=== PATIENT | male | born 1955 | race Caucasian/White ===

== ENCOUNTER 2018-06-16 13:28 | Emergency (ER) | payer OTHER ==
[~2018-06-16] VITALS: Ht 182.9 cm; Wt 83.9 kg
[2018-06-16 13:58] LABS: BASOPHILS ABSOLUTE AUTO 0.06 K/mm3 (0.00-0.23); BASOPHILS PERCENT AUTO 1 % (0-2); EOSINOPHILS PERCENT AUTO 1 % (0-6); Hematocrit 47.3 % (37.0-53.0); Hemoglobin 15.5 g/dL (13.5-17.5); IMMATURE GRAN ABSOLUTE AUTO 0.02 K/mm3 (0.00-0.10); IMMATURE GRAN PERCENT AUTO 0 % (0-1); LYMPHOCYTES PERCENT AUTO 32 % (21-46); MONOCYTES ABSOLUTE AUTO 0.81 K/mm3 (0.16-1.47); MONOCYTES PERCENT AUTO 10 % (4-13); Mean Corpuscular HGB 29.1 pg (26.0-34.0); Mean Corpuscular HGB Conc 32.8 g/dL (31.5-36.5); Mean Corpuscular Volume 89 fL (80-100); Mean Platelet Volume 10.1 fL (9.1-12.4); NEUTROPHILS ABSOLUTE AUTO 4.58 K/mm3 (1.96-9.15); NEUTROPHILS PERCENT AUTO 56 % (41-73); Platelet Count 299 K/mm3 (150-400); RDW Coefficient Variation 13.8 % (11.7-14.2); Red Blood Cell Count 5.33 M/mm3 (4.30-5.90); White Blood Cell Count 8.17 K/mm3 (4.00-11.30)
[2018-06-16 14:09] LABS: Alanine Aminotransfer (ALT/SGP 175 U/L (12-78); Albumin, Blood 3.6 g/dL (3.4-5.0); Albumin/Globulin Ratio 0.9 (0.8-1.8); Alk Phos 128 U/L (50-136); Anion Gap 9 mmol/L (6-16); Aspartate Aminotrans (AST/SGOT 97 U/L (12-37); Bilirubin, Total 0.3 mg/dL (0.1-1.0); Blood Urea Nitrogen 17 mg/dL (8-24); Bun/Creatinine Ratio 21.7 (12.0-20.0); CO2, Blood 23 mmol/L (21-32); Calcium, Blood 8.9 mg/dL (8.5-10.1); Chloride, Blood 111 mmol/L (98-108); Creatinine, Blood 0.78 mg/dL (0.60-1.20); Globulin, Blood 4.1 g/dL (2.2-4.0); Glomerular Filtration Rate >60 (60-); Glucose, Blood 104 mg/dL (70-99); Potassium, Blood 3.8 mmol/L (3.5-5.5); Sodium, Blood 143 mmol/L (136-145); Total Protein, Blood 7.7 g/dL (6.4-8.2)
[2018-06-16 14:56] LABS: International Normalized Ratio 1.07; Prothrombin Time Results 11.3 Sec (9.7-11.5)
[2018-06-16 15:31] LABS: Source, Urine Clean Catch
[2018-06-16 15:51] LABS: Appearance, Urine Clear (Clear); Bilirubin, Urine Neg (Neg); Blood, Urine Neg (Neg); Color, Urine Yellow (P-Yellow); Glucose Qualitative, Urine Neg (Neg); Ketones, Urine Neg (Neg); Leukocyte Esterase, Urine Neg (Neg); Nitrite, Urine Neg (Neg); Protein, Urine 1+ (Neg); Specific Gravity, Urine 1.015 (1.003-1.022); Urobilinogen, Urine NORM (Normal); pH, Urine 6.5 (5.0-8.0)
[2018-06-17] MEDS ORDERED: ATOR40TA PO (02:58)
[2018-06-17] MEDS ORDERED: CEFP200 PO (02:59)
[2018-06-17] MEDS ORDERED: TAMS.4ER PO (02:59)
[2018-06-17] MEDS ORDERED: WARF5 PO (02:59)
== END 2018-06-16 15:40 | disposition home or self-care (01) ==
LOC: ER 13:28
PROVIDERS: Emergency Medicine
DX: I63.9 Cerebral infarction, unspecified (principal); R79.1 Abnormal coagulation profile
CPT/HCPCS: 80053; 85025; 85610; 99283

== ENCOUNTER 2018-06-17 02:32 | Emergency (ER) | payer OTHER ==
[~2018-06-17] VITALS: Ht 182.9 cm; Wt 83.9 kg
[2018-06-17] MEDS ORDERED: ATOR40TA PO (02:58)
[2018-06-17] MEDS ORDERED: WARF5 PO (02:59)
[2018-06-17] MEDS ORDERED: TAMS.4ER PO (02:59)
[2018-06-17] MEDS ORDERED: CEFP200 PO (02:59)
== END 2018-06-17 04:28 | disposition home or self-care (01) ==
LOC: ER 02:32
DX: S20.212A Contusion of left front wall of thorax, initial encounter (principal); W01.198A Fall on same level from slipping, tripping and stumbling with subsequent striking against other object, initial encounter; Z87.891 Personal history of nicotine dependence; Z86.73 Personal history of transient ischemic attack (TIA), and cerebral infarction without residual deficits
CPT/HCPCS: 71046; 99283-25

== ENCOUNTER 2018-07-10 11:34 | Inpatient (IN) | payer OTHER ==
[~2018-07-10] VITALS: Ht 182.9 cm; Wt 81.1 kg
[~2018-07-10 11:34] MED LIST: ATOR40TA PO; CEFP200 PO; TAMS.4ER PO; WARF5 PO
[2018-07-10 13:32] LABS: BASOPHILS ABSOLUTE AUTO 0.02 K/mm3 (0.00-0.23); BASOPHILS PERCENT AUTO 0 % (0-2); EOSINOPHILS ABSOLUTE AUTO 0.01 K/mm3 (0.00-0.68); EOSINOPHILS PERCENT AUTO 0 % (0-6); Hematocrit 48.4 % (37.0-53.0); Hemoglobin 15.8 g/dL (13.5-17.5); IMMATURE GRAN ABSOLUTE AUTO 0.01 K/mm3 (0.00-0.10); IMMATURE GRAN PERCENT AUTO 0 % (0-1); LYMPHOCYTES ABSOLUTE AUTO 2.73 K/mm3 (0.84-5.20); LYMPHOCYTES PERCENT AUTO 45 % (21-46); MONOCYTES ABSOLUTE AUTO 0.52 K/mm3 (0.16-1.47); MONOCYTES PERCENT AUTO 9 % (4-13); Mean Corpuscular HGB 28.8 pg (26.0-34.0); Mean Corpuscular HGB Conc 32.6 g/dL (31.5-36.5); Mean Corpuscular Volume 88 fL (80-100); Mean Platelet Volume 10.3 fL (9.1-12.4); NEUTROPHILS ABSOLUTE AUTO 2.81 K/mm3 (1.96-9.15); NEUTROPHILS PERCENT AUTO 46 % (41-73); Platelet Count 290 K/mm3 (150-400); RDW Coefficient Variation 14.3 % (11.7-14.2); Red Blood Cell Count 5.49 M/mm3 (4.30-5.90)
[2018-07-10 13:42] LABS: Alanine Aminotransfer (ALT/SGP 143 U/L (12-78); Alk Phos 162 U/L (50-136); Anion Gap 10 mmol/L (6-16); Aspartate Aminotrans (AST/SGOT 72 U/L (12-37); Bilirubin, Total 0.6 mg/dL (0.1-1.0); Blood Urea Nitrogen 13 mg/dL (8-24); Bun/Creatinine Ratio 17.1 (12.0-20.0); CO2, Blood 22 mmol/L (21-32); Calcium, Blood 9.1 mg/dL (8.5-10.1); Chloride, Blood 109 mmol/L (98-108); Creatinine, Blood 0.76 mg/dL (0.60-1.20); Glomerular Filtration Rate >60 (60-); Glucose, Blood 138 mg/dL (70-99); Potassium, Blood 3.3 mmol/L (3.5-5.5); Sodium, Blood 141 mmol/L (136-145)
[2018-07-10 14:29] LABS: International Normalized Ratio 1.08; Prothrombin Time Results 11.4 Sec (9.7-11.5)
[2018-07-10 15:32] LABS: Source, Urine Clean Catch
[2018-07-10 15:41] LABS: Bilirubin, Urine Neg (Neg); Blood, Urine Neg (Neg); Glucose Qualitative, Urine Neg (Neg); Ketones, Urine Neg (Neg); Leukocyte Esterase, Urine Neg (Neg); Nitrite, Urine Neg (Neg); Protein, Urine 2+ (Neg); Urobilinogen, Urine NORM (Normal)
[2018-07-10 15:49] LABS: Appearance, Urine Clear (Clear); Color, Urine Yellow (P-Yellow); Mucus Mod (0-Heavy)
[2018-07-10 15:50] LABS: Bacteria Few /hpf; Calcium Oxalate Crystals Mod /hpf; Red Blood Cells, Urine 0-2 /hpf (0-2); Squamous Epithelial Cells Not Seen /hpf (Few); White Blood Cells, Urine 0-2 /hpf (0-5)
[2018-07-10] MEDS ORDERED: ASPI81CH PO (16:10)
[2018-07-10 18:47] LABS: International Normalized Ratio 1.11; Prothrombin Time Results 11.7 Sec (9.7-11.5)
[2018-07-10 23:12] LABS: U Amphetamine Screen DETECTED; U Barbituate Screen Not Detected; U Benzodiazapine Screen Not Detected; U Buprenorphine Screen Not Detected; U Cannabinoids Screen Not Detected; U Cocaine Screen Not Detected; U Methadone Screen Not Detected; U Methamphetamine Screen DETECTED; U Opiates Screen Not Detected; U Oxycodone Screen Not Detected; U Phencyclidine Screen Not Detected; U Propoxyphene Screen Not Detected
--- NOTE | 2018-07-10 23:38 | NUR ---
PHYSICIAN CORRESPONDENCE PATIENT STATED THAT HE NORMALLY TAKES LIPITOR AT BEDTIME. PHYSICIAN STATED TO JUST CALL PHARMACY AND HAVE THEM SWTICH IT.
[2018-07-11 05:27] LABS: BASOPHILS ABSOLUTE AUTO 0.04 K/mm3 (0.00-0.23); BASOPHILS PERCENT AUTO 1 % (0-2); EOSINOPHILS ABSOLUTE AUTO 0.07 K/mm3 (0.00-0.68); EOSINOPHILS PERCENT AUTO 1 % (0-6); Hematocrit 44.5 % (37.0-53.0); Hemoglobin 14.6 g/dL (13.5-17.5); IMMATURE GRAN ABSOLUTE AUTO 0.03 K/mm3 (0.00-0.10); IMMATURE GRAN PERCENT AUTO 0 % (0-1); LYMPHOCYTES PERCENT AUTO 42 % (21-46); MONOCYTES ABSOLUTE AUTO 0.85 K/mm3 (0.16-1.47); MONOCYTES PERCENT AUTO 11 % (4-13); Mean Corpuscular HGB Conc 32.8 g/dL (31.5-36.5); Mean Corpuscular Volume 88 fL (80-100); Mean Platelet Volume 10.3 fL (9.1-12.4); NEUTROPHILS ABSOLUTE AUTO 3.51 K/mm3 (1.96-9.15); NEUTROPHILS PERCENT AUTO 46 % (41-73); Platelet Count 272 K/mm3 (150-400); RDW Coefficient Variation 14.2 % (11.7-14.2); RDW Standard Deviation 45.4 fL (35.1-46.3); Red Blood Cell Count 5.04 M/mm3 (4.30-5.90)
[2018-07-11 05:33] LABS: International Normalized Ratio 1.28; Prothrombin Time Results 13.3 Sec (9.7-11.5)
[2018-07-11 05:48] LABS: Anion Gap 7 mmol/L (6-16); Blood Urea Nitrogen 15 mg/dL (8-24); Bun/Creatinine Ratio 20.3 (12.0-20.0); CO2, Blood 24 mmol/L (21-32); Calcium, Blood 8.7 mg/dL (8.5-10.1); Chloride, Blood 108 mmol/L (98-108); Creatinine, Blood 0.74 mg/dL (0.60-1.20); Glomerular Filtration Rate >60 (60-); Glucose, Blood 107 mg/dL (70-99); Potassium, Blood 3.6 mmol/L (3.5-5.5); Sodium, Blood 139 mmol/L (136-145)
--- NOTE | 2018-07-11 06:18 | NUR ---
SHIFT SUMMARY RECEIVED REPORT FROM ED RN. ARRIVED TO MEDICAL UNIT VIA STRETCHER @ 2058. ORIENTED TO ROOM AND CALL SYSTEM. A/O, ABLE TO MAKE NEEDS KNOWN. ANSWERS QUESTIONS APPROPRIATELY. RE-INFORCED TEACHING FIRST OFFICER SYSTEM MULTIPLE TYPES T/O SHIFT; WILL DEMONSTRATE, BUT THEN CALLS OUT FOR HELP. TELE RUNNING NSR @ 82 PER PCU SPINNER CAP FRAME. NO C/O PAIN/DISCOMFORT. VSS/AFEBRILE. REMAINS ON RA, SATING >90%; RESPIRATIONS EQUAL WITH EVEN RISE/FALL. BED IN LOWEST POSITON. ALARM ON. CALL LIGHT AND BELONGINGS WITHIN REACH. WCTM. REPORT TO ONCOMING RN.
--- NOTE | 2018-07-11 07:58 | NUR ---
PATIENT UNABLE TO LIFT LEFT ARM ON OWN, WHEN RN LIFTS IT SLOWLY DRIFTS BACK DOWN. 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 NO MOVEMENT RT LEG.
--- NOTE | 2018-07-11 10:59 | NUR ---
echocardiogram completed
--- NOTE | 2018-07-11 16:21 | NUR ---
PATIENT ALERT, ORIENTED. COOPERATIVE. UNLABORED RESPIRATIONS. UNABLE TO USE LEFT LEG AND WHEN RN MOVES HIS LT ARM UP IN AIR IS ABLE TO HOLD IT UP FOR FEW SECONDS. NO SWALLOWING OR VOICE DEFICITS. AWARE POSSIBLE D'C TO SNF. BED IN LOW POSITION. CALL LIGHT WITHIN REACH OF RT ARM. WILL CONTINUE TO MONITOR.
--- NOTE | 2018-07-11 17:13 | NUR ---
REVIEWED P.T. FOR LEFT ARM. WILL CONTINUE TO ENCOURAGE.
--- NOTE | 2018-07-11 17:16 | NUR ---
TALKED TO ABOUT NO MEDS VIA IV AND CAN WE HAVE ORDER FOR NO IV ASSESS NEEDED PRESENT ONE WAS IN C.W. OK . ALSO D'C TELE.
--- NOTE | 2018-07-12 00:43 | NUR ---
0040 OBSERVED PT GRAB CALL LIGHT WITH WEAKENED ARM "LEFT SIDE" AND TOSS ON FLOOR.
[2018-07-12 04:57] LABS: Hematocrit 46.1 % (37.0-53.0); Hemoglobin 14.7 g/dL (13.5-17.5); Mean Corpuscular HGB 29.1 pg (26.0-34.0); Mean Corpuscular HGB Conc 31.9 g/dL (31.5-36.5); Mean Platelet Volume 10.5 fL (9.1-12.4); Platelet Count 228 K/mm3 (150-400); RDW Coefficient Variation 14.4 % (11.7-14.2); RDW Standard Deviation 47.8 fL (35.1-46.3); Red Blood Cell Count 5.06 M/mm3 (4.30-5.90); White Blood Cell Count 8.57 K/mm3 (4.00-11.30)
[2018-07-12 05:00] LABS: Mean Corpuscular Volume 91 fL (80-100)
[2018-07-12 05:12] LABS: International Normalized Ratio 1.53; Prothrombin Time Results 15.6 Sec (9.7-11.5)
--- NOTE | 2018-07-12 05:13 | NUR ---
SHIFT SUMMARY A/O, ABLE TO MAKE NEEDS KNOWN. ANSWERS QUESTIONS APPROPRIATELY. C/O PAIN/DISCOMFORT THIS AM; MEDICATED PER EMAR. NOTICED DURING BED CHANGE LAST NIGHT THAT PATIENT IS ABLE TO LIFT UP HIPS (BILATERALLY). APPEARS TO CONSCIOUSLY KEEP L LEG STRAIGHTENED. 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 STATED THIS AM "I NEED HELP", WHEN ASKED WHAT PATIENT NEEDED HELP WITH HE STATES "ESCAPING". PATIENT AWARE THAT HE IS CURRENTLY UNABLE TO WALK. DEMONSTRATES UNDERSTANDING. VSS. NO OTHER ACUTE CHANGES OVERNIGHT. BED IN LOWEST POSITION. ALARM ON. CALL LIGHT AND BELONGINGS WITHIN REACH. WCTM. REPORT TO ONCOMING RN.
--- NOTE | 2018-07-12 18:26 | NUR ---
PATIENT ALERT. COOPERATIVE. "CAREGIVER" HAS BEEN IN ROOM MOST OF AFTERNOON. DISCUSSED; LABS, &IMAGING W/PATIENT. PATIENT AWARE IF HE CONTINUES TO TAKE METH AND AMPHETAMINES HE COULD HAVE ANOTHER STROKE OR WORSE. REVIEWED EXERCISES FOR P.T. FOR LEFT ARM W/PATIENT AGAIN. UNLABORED RESPIRATIONS. BED IN LOW POSITION. CALL LIGHT NEAR RT ARM. WILL CONTINUE TO MONITOR
--- NOTE | 2018-07-13 04:49 | NUR ---
SHIFT SUMMARY A/O, ABLE TO MAKE NEEDS KNOWN. COOPERATIVE WITH CARE. ANSWERS QUESTIONS APPROPRIATELY. CAREGIVE STAYED THROUGHOUT NIGHT AND ASSISTED WITH CARES AND REPOSITIONING. C/O HEADACHE THIS AM; MEDICATED PER EMAR. APPEARED TO REST MUCH OF SHIFT. VSS/AFEBRILE. NO ACUTE CHANGES OVERNIGHT. BED IN LOWEST POSITION. ALARM ON. CALL LIGHT AND BELONGINGS WITHIN REACH. WCTM. REPORT TO ONCOMING RN.
[2018-07-13 05:31] LABS: Hematocrit 47.8 % (37.0-53.0); Mean Corpuscular HGB 28.7 pg (26.0-34.0); Mean Corpuscular HGB Conc 31.4 g/dL (31.5-36.5); Mean Corpuscular Volume 92 fL (80-100); Mean Platelet Volume 10.8 fL (9.1-12.4); Platelet Count 248 K/mm3 (150-400); RDW Coefficient Variation 14.2 % (11.7-14.2); RDW Standard Deviation 47.8 fL (35.1-46.3); Red Blood Cell Count 5.22 M/mm3 (4.30-5.90); White Blood Cell Count 9.13 K/mm3 (4.00-11.30)
[2018-07-13 05:39] LABS: International Normalized Ratio 1.75; Prothrombin Time Results 17.6 Sec (9.7-11.5)
[2018-07-13 05:53] LABS: Anion Gap 8 mmol/L (6-16); Blood Urea Nitrogen 12 mg/dL (8-24); Bun/Creatinine Ratio 16.9 (12.0-20.0); CO2, Blood 18 mmol/L (21-32); Calcium, Blood 8.5 mg/dL (8.5-10.1); Chloride, Blood 110 mmol/L (98-108); Creatinine, Blood 0.71 mg/dL (0.60-1.20); Glomerular Filtration Rate >60 (60-); Glucose, Blood 103 mg/dL (70-99); Potassium, Blood 4.2 mmol/L (3.5-5.5); Sodium, Blood 136 mmol/L (136-145)
--- NOTE | 2018-07-13 17:37 | NUR ---
SHIFT SUMMARY PT A&OX3. SLIGTH LEFT SIDED FACIAL DROOP. SEALER SANDER HAVE LEFT SIDED WEAKNESS, AND LLE MOVES A REFLEX OR PER PATIENT FAMILY IN HIS SLEEP. PT IS CALM AND COOPERATIVE WITH CARE. PT HAS FAMILY AT BEDSIDE T/O SHIFT. PT ABLE TO MAKE NEEDS KNOWN. PT RESTING IN BED THIS AM, UP IN CHIAR THIS AFTERNOON. PT DENIES SOB, PAIN AND N/V DURING SHIFT. VSS. NO OTHER ACUTE CHANGES NOTED DURING SHIFT. WILL CONTINUE TO MONITOR UNTIL REPORT GIVEN TO ONCOMING RN.
--- NOTE | 2018-07-14 04:37 | NUR ---
SHIFT SUMMARY: PT IS ALERT AND ORIENTED. PT IS CALM AND COOPERATIVE WITH CARE. PT IS A ONE PERSON ASSIST FOR TRANSFERS. PT CALLS APPROPRIATELY. CAREGIVERS IN THE ROOM OVERNIGHT. PT DENIES PAIN, NAUSEA, VOMITING, AND SOB. NO ACUTE CHANGES OR COMPLICATIONS OVERNIGHT. WILL REPORT TO DAY NURSE.
[2018-07-14 05:07] LABS: International Normalized Ratio 1.85; Prothrombin Time Results 18.5 Sec (9.7-11.5)
--- NOTE | 2018-07-14 19:33 | NUR ---
SHIFT SUMMARY PT A&OX3. PT CALM AND COOPERATIVE WITH CARE. PT UP IN CHAIR FOR MAJORITY OF SHIFT. PT 2 PERSON STAND PIVOT. EXHIBITIONS AND COLLECTIONS MANAGER WITH LEFT SIDED WEAKNESS. PT REPORTS INABLITY TO MOVE LLE, REFLEXS INTACT. PT USES URINAL AT TIMES BUT ALSO INCONTINENT AT TIMES. PT DENIES PAIN, SOB AND N/V DURING SHIFT. PT HAS GOOD APPETEITE. PLANS TO DISCHARGE TO INPATIENT REHAB OR SNF, FAMILY SANDIP MINOR, DISCHARGE PLANNING AWARE. VSS. NO OTHER ACUTE CHANGES NOTED DURING SHIFT. REPORT GIVEN TO ONCOMING RN.
--- NOTE | 2018-07-15 04:03 | NUR ---
SHIFT SUMMARY PT HAS RESTED MOST OF THE NIGHT, AND HAS DENIED NEEDS. NO ACUTE CHANGES. PT CAREGIVER AT BEDSIDE T/O THE NIGHT. MALE CAREGIVER CAME IN WITH TWO YOUNGER MEN, WHO STAYED FOR ABOUT 15 MINUTES PER PT REPORT. THEY WERE SEEN LEAVING BUT NOT SEEN ENTERING THE PT ROOM. PT STATES THEY WERE HIS FRIENDS. PT HAS BEEN CONTINENT/INCONTINENT OF URINE. WEAKNESS REMAINS TO LEFT SIDE. SPEECH CLEAR. VITALS STABLE. ASSESSMENT HAS REMAINED UNCHANGED. WILL CONTINUE TO MONITOR AND REPORT TO ONCOMING RN.
[2018-07-15 05:46] LABS: International Normalized Ratio 1.93; Prothrombin Time Results 19.3 Sec (9.7-11.5)
--- NOTE | 2018-07-15 18:57 | NUR ---
SHIFT SUMMARY OX3; MULTIPLE CVA'S WITH LEFT SIDED WEAKNESS; STAND PIVOT 2 ASSIST WITH GAIT BELT. DIFFICULTY WITH ABDUCTION ON LEFT SIDE. DENIES PAIN. MULTIPLE FAMILY MEMBERS IN ROOM THROUGHOUT DAY. CONTINENT STOOL/INCONTINENT AT TIMES. ATTENDS IN PLACE.
[2018-07-16 05:48] LABS: International Normalized Ratio 2.41; Prothrombin Time Results 23.6 Sec (9.7-11.5)
--- NOTE | 2018-07-16 08:31 | NUR ---
SHIFT SUMMARY ALERT, ABLE TO MAKE NEEDS KNOWN. COOPERATIVE WITH CARE. ANSWERS QUESTIONS APPROPRIATELY. CAREGIVER IN ROOM AND STAYED THROUGHOUT THE NIGHT. VSS/AFEBRILE. APPEARED TO SLEEP MUCH OF SHIFT. CONTROL VALVE TECHNICIAN STRENGTH BECOMING STRONGER ON THE L SIDE. NO ACUTE CHANGES OVERNIGHT. CONTINUED TO MONITOR THROUGHOUT SHIFT. REPORT GIVEN TO ONCOMING RN.
--- NOTE | 2018-07-16 19:01 | NUR ---
SHIFT SUMMARY- PT IS ALERT AND ORIENTED, LEFT SIDED WEAKNESS MAKES HIM A 2 PERSON TRANSFER WITH A JAMES WALKER AND GAIT BELT. PT HAS HIS CALL LIGHT IN REACH, NO C/O PAIN T/O THE SHIFT. PT HAS USED THE CALL LIGHT FREQUENTLY T/O THE SHIFT. PT SLEPT MOST OF THE SHIFT, HAS GOOD BED MOBILITY AND IS ABLE TO, AND FREQUENTLY, REPOSITIONS HIMSELF. FULL LINNEN CHANGE DONE THIS MORNING.
--- NOTE | 2018-07-17 05:15 | NUR ---
SHIFT SUMMARY A/O, ABLE TO MAKE NEEDS KNOWN. COOPERATIVE WITH CARE. ANSWERS QUESTIONS APPROPRIATELY. NO C/O PAIN/DISCOMFORT. CAREGIVER IN ROOM AND STAYED THROUGHOUT THE NIGHT. APPEARED TO SLEEP MUCH OF SHIFT. NO ACUTE CHANGES OVERNIGHT. VSS/AFEBRILE. WCTM. BED IN LOWEST POSITION. ALARM ON. CALL LIGHT AND BELONGINGS WITHIN REACH. REPORT TO ONCOMING RN.
[2018-07-17 06:16] LABS: International Normalized Ratio 2.21; Prothrombin Time Results 21.8 Sec (9.7-11.5)
--- NOTE | 2018-07-17 19:35 | NUR ---
SHIFT SUMMARY- PT HAS HAD NO ACUTE CHANGES T/O THE SHIFT. STILL ON RA AT THIS TIME NO SOB OR C/O PAIN. PT USES THE URINAL INDEPENDENTLY IN BED AND OCCASSIONALLY SPILLS, HE WILL CALL IF HE NEEDS HELP. PT HAS A FRIEND AT THE BEDSIDE. PT WORKED WITH PHYSICAL THERAPY AND OCCUPATIONAL THERAPY TODAY, HE IS SHOWING IMPROVEMENT IN TRANSFER ABILITY. PT HAS A LARGE APPETITE AND EATS 100% OF MEAL TRAYS. PT ALERT, ORIENTED AND HAS HIS CALL LIGHT IN REACH, CALLS APPROPRIATELY.
--- NOTE | 2018-07-18 04:28 | NUR ---
SHIFT SUMMARY: PT IS ALERT AND ORIENTED. PT IS CALM AND COOEPRATIVE WITH CARE. PT CALLS APPROPRIATELY. PT IS A ONE PERSON ASSIST FOR TRANSFERS. CAREGIVER IN THE ROOM OVERNIGHT. PT DENIES PAIN, NAUSEA, VOMITING, AND SOB. PT SLEPT MUCH OF THE NIGHT. NO ACUTE CHANGES OR COMPLICATIONS. BED IN LOW POSITION, CALL LIGHT WITHIN REACH.
[2018-07-18 05:37] LABS: International Normalized Ratio 1.87; Prothrombin Time Results 18.7 Sec (9.7-11.5)
--- NOTE | 2018-07-18 17:42 | NUR ---
SHIFT SUMMARY PATIENT IN ROOM SLEEPING. TIDIED ROOM. PROVIDED PATIENT WITH A ROOTBEER. PROVIDED DINNER. ABLE TO MAKE HIS NEEDS KNOWN. NO ACUTE CHANGES NOTED.
--- NOTE | 2018-07-18 22:18 | NUR ---
ASSUMED CARE OF PT AT 2119. PT W/O S/S DISTRESS AT THIS TIME.
[2018-07-19 05:39] LABS: International Normalized Ratio 2.05; Prothrombin Time Results 20.4 Sec (9.7-11.5)
--- NOTE | 2018-07-19 06:23 | NUR ---
SUMMARY: A/O, SPECIFIES NEEDS AND FAMILY/CAREGIVERS IN ROOM AT ALL TIMES ASSISTING W/CARE. PT SLEPT MAJORITY OF NOCTE AND DENIED PAIN/COMPLAINTS. HE HAD OCCASIONAL NIGHT INCONTINENCE W/ATTENDS CHANGED PRN AND USED URINAL AT TIMES. 1-2 ASSIST REQUIRED OOB TO BSC/CHAIR D/T L.SIDE WEAKNESS FROM MULTIPLE CVA'S. NO ACUTE CHANGES, VSS/AFEBRILE. WILL MONITOR AND REPORT TO DAY RN.
--- NOTE | 2018-07-19 16:39 | NUR ---
PT A/OX3, PLEASANT AND COOPERATIVE, THE PT IS UP WITH ASSIST, USEING THE GAIT BELT AND JAMES WALKER FOR BALANCE, LITTLE MOVEMENT IN LEFT ARM AND MODERATE MOVEMENT IN THE LEFT LEG, THE PT NEEDS ASSISTANCE WITH MEALS AND TOILETING, PT DENIED ANY PAIN SO FAR TODAY, PT IS AWAITING PLACEMENT TO AN IRU, CALL LIGHT IN REACH WILL CONTINUE TO MONITOR AND ASSES FOR CHANGES
--- NOTE | 2018-07-19 17:33 | NUR ---
at 1430 AT OR AROUND 1430 THE PT TRANSFERED TO ROOM 359 FROM ROOM 327, A/OX3, ACCOMPANIED BY FAMILY THE PT WAS OTIENTED TO THE ROOM CALL SYSTEM AND LAYOUT, PT WAS A 1 PERSON ASSIST TRANSFER FROM THE WHEELCHAIR TO THE BED
[2018-07-20 05:01] LABS: International Normalized Ratio 2.21; Prothrombin Time Results 21.8 Sec (9.7-11.5)
--- NOTE | 2018-07-20 06:31 | NUR ---
*SHIFT SUMMARY* PATIENT IS ALERT AND ORIENTED TO PLACE AND FAMILY. ON ROOM AIR. LEFT SIDE WEAK BUT ABLE TO MOVE L ARM AND L LEG. PT IS INCONTINENT AT TIMES, HE TRIES TO USE URINAL BY HIMSELF AND DIBBLES AND MISSES THE URINAL. PT SLEPT WELL THROUGHOUT THE NIGHT NO NEW CHANGES IN CONDITION. VITALS STABLE
--- NOTE | 2018-07-20 14:59 | NUR ---
SHIFT SUMMARY PATIENT HAS HAD NO ACUTE CHANGES TODAY. ABLE TO MAKE HIS NEEDS KNOWN. ATTENDS CHANGED PRN FOR INCONTINENCE.
--- NOTE | 2018-07-21 04:44 | NUR ---
SHIFT SUMMARY PT HAS SLEPT T/O SHIFT. PT HAD NO COMPLAINTS. PT CURRENTLY BREATHING EASY AND SLEEPING. CALL LIGHT IN REACH.
[2018-07-21 05:20] LABS: International Normalized Ratio 1.93; Prothrombin Time Results 19.3 Sec (9.7-11.5)
--- NOTE | 2018-07-21 19:51 | NUR ---
SHIFT SUMMARY- PT DENIES PAIN. DENIES SOB. RESP E/U ON RA. DENIES N/V. PT REQUESTED CONDOM CATH. CONDOM CATH DRAINING YELLOW COLORED URINE. NO OTHER SIGNIFICANT CHANGES THIS SHIFT.
[2018-07-22 05:05] LABS: International Normalized Ratio 2.13; Prothrombin Time Results 21.1 Sec (9.7-11.5)
--- NOTE | 2018-07-22 06:52 | NUR ---
shift summary: Left sides weakness remains about the same. Pt very weak left side. Pt unable to feed self. Pt incontinent of urine and request that we use a branden cath on him. Condom cath replaced x 2 times during the night. Pt moves around and does not make sure that the condom cath goes with him. pt alert, oriented pleasant. Pt able to take pills without problems. Pt requires one assist to get to chair.
--- NOTE | 2018-07-22 19:12 | NUR ---
SUMMARY PT IS A/O X4, PLEASANT AFFECT. DX CVA W L SIDED WEAKNESS. HE IS ABLE TO STAND W ASSIST, AMBULATE W LEG BRACE & WALKER SHORT DISTANCE HOWEVER L LEG CONTINUES UNCOORDINATED. L ARM CONTINUES WEAK W POOR COORDINATION/NEGLECT. HE IS WORKING W PT/OT. PLAN FOR HIM TO TRANSFER TO INTENSIVE IRU, [facility] MAKING ARRANGEMENTS. VSS.
[2018-07-23 04:56] LABS: International Normalized Ratio 2.42; Prothrombin Time Results 23.7 Sec (9.7-11.5)
--- NOTE | 2018-07-23 05:46 | NUR ---
SHIFT SUMMARY NO ACUTE CHANGES THIS SHIFT. PT SLEPT WELL, AOX4. VSS. DENIES PAIN, N/V OR SOB. PT HAS WEAKNESS IN LEFT SIDE. 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 GREAT TOE IS ABLE TO WIGGLE. CONDOM CATHETER IN PLACE, PATENT & DRAINING. CALL LIGHT IN REACH & I WILL CONT. TO MONITOR PT.
--- NOTE | 2018-07-23 16:09 | NUR ---
SUMMARY SALES REPRESENTATIVE PUBLICATIONSNURSE PRACTITIONER HOME ASSESSMENTS INSURANCE DENY INTENSIVE INPT REHAB TODAY, PT INFORMED. PLAN NOW FOR LOCAL SNF. HE CONTINUES TO HAVE L ARM & L LEG WEAKNESS, UNCOORDINATION. PARTICIPATED WITH PT/OT TODAY. HAS BEEN UP IN CHAIR RY Lopez. HE IS A/O X4, PLEASANT/COOPERATIVE. VSS.
--- NOTE | 2018-07-24 04:14 | NUR ---
Shift summary:Pt has been sleeping most of shift with no c/o discomfort. Pt seems to be gaining strength in left arm and leg. Pt unable to keep condom cath on so was discontinued. Pt wearing attends now.
[2018-07-24 05:11] LABS: International Normalized Ratio 2.72; Prothrombin Time Results 26.3 Sec (9.7-11.5)
--- NOTE | 2018-07-24 19:35 | NUR ---
SHIFT SUMAMRY: NO ACUTE CHANGES TO REPORT THIS SHIFT. PT A&O; CALM AND COOEPRATIVE WITH CARE. PT HX CVA; L SIDE DEFICITS. NO IV ACCESS, PER ORDER. PT UP TO BSC WITH 1-ASSIST c FWW. AWAITING PLACEMENT. REPORT GIVEN TO ONCOMING RN.
[2018-07-25 05:34] LABS: International Normalized Ratio 2.39; Prothrombin Time Results 23.4 Sec (9.7-11.5)
--- NOTE | 2018-07-25 07:55 | NUR ---
SHIFT SUMMARY PT SLEPT T/O SHIFT. PT HAD NO ISSUES NOTED. PT EAGER FOR DC.
--- NOTE | 2018-07-25 11:45 | NUR ---
[facility] ALL PT BELONGINGS WITH PATIENT.
== END 2018-07-25 11:52 | DRG 65 ==
LOC: ER 11:34 → MEDS 17:28 → ERHOLD 17:28 → MEDS 20:54
PROVIDERS: Emergency Medicine; Family Medicine; Pharmacist; Physician Assistant; ADMIT Internal Medicine
DX: I63.9 Cerebral infarction, unspecified (principal); I69.354 Hemiplegia and hemiparesis following cerebral infarction affecting left non-dominant side; Z87.891 Personal history of nicotine dependence; R47.01 Aphasia; I25.2 Old myocardial infarction; E78.5 Hyperlipidemia, unspecified; F15.10 Other stimulant abuse, uncomplicated; Z79.01 Long term (current) use of anticoagulants
CPT/HCPCS: 36415; 70450; 70551; 80048; 80053; 81001; 84443; 85025; 85027; 85610; 90686; 93005; 93010; 93306; 93880; 97110; 97112; 97116; 97162; 97167; 97530; 97535; 99285-25

== ENCOUNTER → 2018-09-19 | Outpatient (CLI) | payer OTHER ==
[~2018-09-19] MED LIST changes: +Aspirin EC81 MG PO; +METO25 PO; +MIRALAX17 GM PO; +MUCINEX D ER 61 EACH PO; +Nicoderm Cq1 EAC1 TOP; +OMEPRAZOLE20 MG PO; +XARELTO20 MG PO
[2018-09-19 09:07] LABS: International Normalized Ratio 2.17; Prothrombin Time Results 21.4 Sec (9.7-11.5)
== END | disposition home or self-care (01) ==
LOC: LAB UVN 08:44 → EDSTATUS 09:47
DX: R79.1 Abnormal coagulation profile (principal)
CPT/HCPCS: 85610

== ENCOUNTER 2019-01-03 12:24 | Inpatient (IN) | payer OTHER ==
[~2019-01-03] VITALS: Ht 182.9 cm; Wt 83.6 kg
[~2019-01-03 12:24] MED LIST changes: -METO25 PO; -MIRALAX17 GM PO; -MUCINEX D ER 61 EACH PO; -Nicoderm Cq1 EAC1 TOP; -OMEPRAZOLE20 MG PO; -XARELTO20 MG PO
[2019-01-03] MEDS ORDERED: OMEPRAZOLE20 MG PO (12:45)
[2019-01-03] MEDS ORDERED: XARELTO20 MG PO (12:46)
[2019-01-03 13:01] LABS: BASOPHILS ABSOLUTE AUTO 0.04 K/mm3 (0.00-0.23); BASOPHILS PERCENT AUTO 0 % (0-2); EOSINOPHILS ABSOLUTE AUTO 0.01 K/mm3 (0.00-0.68); EOSINOPHILS PERCENT AUTO 0 % (0-6); Hematocrit 49.5 % (37.0-53.0); Hemoglobin 16.6 g/dL (13.5-17.5); IMMATURE GRAN ABSOLUTE AUTO 0.03 K/mm3 (0.00-0.10); IMMATURE GRAN PERCENT AUTO 0 % (0-1); LYMPHOCYTES ABSOLUTE AUTO 2.29 K/mm3 (0.84-5.20); LYMPHOCYTES PERCENT AUTO 20 % (21-46); MONOCYTES ABSOLUTE AUTO 1.12 K/mm3 (0.16-1.47); MONOCYTES PERCENT AUTO 10 % (4-13); Mean Corpuscular HGB 29.2 pg (26.0-34.0); Mean Corpuscular HGB Conc 33.5 g/dL (31.5-36.5); Mean Corpuscular Volume 87 fL (80-100); NEUTROPHILS ABSOLUTE AUTO 7.99 K/mm3 (1.96-9.15); NEUTROPHILS PERCENT AUTO 70 % (41-73); Platelet Count 274 K/mm3 (150-400); RDW Coefficient Variation 13.6 % (11.7-14.2); RDW Standard Deviation 43.4 fL (35.1-46.3); Red Blood Cell Count 5.68 M/mm3 (4.30-5.90); White Blood Cell Count 11.48 K/mm3 (4.00-11.30)
[2019-01-03 13:07] LABS: Source, Urine Clean Catch
[2019-01-03 13:15] LABS: Alanine Aminotransfer (ALT/SGP 59 U/L (12-78); Alk Phos 145 U/L (50-136); Anion Gap 9 mmol/L (6-16); Aspartate Aminotrans (AST/SGOT 42 U/L (12-37); Bilirubin, Total 0.5 mg/dL (0.1-1.0); Blood Urea Nitrogen 11 mg/dL (8-24); Bun/Creatinine Ratio 16.3 (12.0-20.0); CO2, Blood 22 mmol/L (21-32); Calcium, Blood 9.4 mg/dL (8.5-10.1); Chloride, Blood 114 mmol/L (98-108); Creatinine, Blood 0.67 mg/dL (0.60-1.20); Ethanol (Alcohol), Blood, Med <3 mg/dL; Globulin, Blood 4.2 g/dL (2.2-4.0); Glomerular Filtration Rate >60 (60-); Glucose, Blood 118 mg/dL (70-99); Potassium, Blood 3.8 mmol/L (3.5-5.5); Sodium, Blood 145 mmol/L (136-145); Total Protein, Blood 8.2 g/dL (6.4-8.2)
[2019-01-03 13:15] LABS: Appearance, Urine Clear (Clear); Bilirubin, Urine Neg (Neg); Blood, Urine 1+ (Neg); Color, Urine Yellow (P-Yellow); Glucose Qualitative, Urine Neg (Neg); Ketones, Urine 1+ (Neg); Leukocyte Esterase, Urine 1+ (Neg); Nitrite, Urine Neg (Neg); Protein, Urine 2+ (Neg); Urobilinogen, Urine 1+ (Normal)
[2019-01-03 13:19] LABS: International Normalized Ratio 1.02; Prothrombin Time Results 10.8 Sec (9.7-11.5)
[2019-01-03 13:27] LABS: Squamous Epithelial Cells Few /hpf (Few)
[2019-01-03 13:28] LABS: Bacteria Rare /hpf; Mucus Light (0-Heavy)
[2019-01-03 13:49] LABS: U Amphetamine Screen Not Detected; U Barbituate Screen Not Detected; U Benzodiazapine Screen Not Detected; U Buprenorphine Screen Not Detected; U Cannabinoids Screen Not Detected; U Cocaine Screen Not Detected; U Methadone Screen Not Detected; U Methamphetamine Screen Not Detected; U Opiates Screen Not Detected; U Oxycodone Screen Not Detected; U Phencyclidine Screen Not Detected; U Propoxyphene Screen Not Detected
--- NOTE | 2019-01-03 19:12 | NUR ---
END OF SHIFT SUMMARY: REPORT RECEIVED FROM KING WOLFE RN. PATIENT ARRIVED TO UNIT VIA STRETCHER. PATIENT ABLE TO ANSWER SOME QUESTIONS. PATIENT SLOW TO RESPOND. OTHER TIMES, PATIENT FALLS ASLEEP BEFORE BEING ABLE TO RESPOND. PATIENT UNABLE TO ASSIST WITH TRANSFER TO NEW BED. PATIENT ABLE TO FOLLOW SOME COMMANDS. UNABLE TO DISCERN IF PATIENT IS UNABLE TO PERFORM REQUESTED ACTIVITY (EX: UNABLE TO ATTEMPT A SMILE WHEN CUED) OR IT IS BECAUSE THE PATIENT FALLS ASLEEP BEFORE BEING ABLE TO COMPLETE COMMAND. UNABLE TO ROUSE PATIENT FOR LONG ENOUGH TO SAFELY SWALLOW MEDICATIONS. NIGHT RN NOTIFIED. PATIENT CLEMONS CATHETER INTACT AND DRAINING. SOME LEAKING AROUND THE INSERTION SITE UPON ARRIVAL. FLUSHED ONCE WITH 10ML NS THROUGH PORT. NO FUTHER PROBLEMS NOTED. PATIENT'S NEPHEW CAME TO VISIT PATIENT. HE REPORTED THAT THE PATIENT HAS TWO CAREGIVERS THROUGHOUT THE WEEK THAT WILL NEED TO BE NOTIFIED OF ADMISSION. NIGHT RN AWARE. PATIENT CONTINUED TO HAVE AN ELEVATED RR (24-28). NO OTHER SIGNS OF DISTRESS NOTED. LUNG SOUNDS ARE CLEAR. SPO2 STABLE ON ROOM AIR.
[2019-01-04 05:01] LABS: BASOPHILS ABSOLUTE AUTO 0.04 K/mm3 (0.00-0.23); BASOPHILS PERCENT AUTO 0 % (0-2); EOSINOPHILS PERCENT AUTO 0 % (0-6); Hematocrit 45.8 % (37.0-53.0); Hemoglobin 15.1 g/dL (13.5-17.5); IMMATURE GRAN ABSOLUTE AUTO 0.03 K/mm3 (0.00-0.10); IMMATURE GRAN PERCENT AUTO 0 % (0-1); LYMPHOCYTES PERCENT AUTO 22 % (21-46); MONOCYTES ABSOLUTE AUTO 1.16 K/mm3 (0.16-1.47); MONOCYTES PERCENT AUTO 11 % (4-13); Mean Corpuscular HGB 29.7 pg (26.0-34.0); Mean Platelet Volume 11.2 fL (9.1-12.4); NEUTROPHILS PERCENT AUTO 67 % (41-73); Platelet Count 216 K/mm3 (150-400); RDW Standard Deviation 45.9 fL (35.1-46.3); Red Blood Cell Count 5.09 M/mm3 (4.30-5.90); White Blood Cell Count 11.03 K/mm3 (4.00-11.30)
[2019-01-04 05:07] LABS: Mean Corpuscular Volume 90 fL (80-100)
--- NOTE | 2019-01-04 05:17 | NUR ---
DC CLEMONS CATHETER. PATIENT TOLERATED WELL. URINAL AT BEDSIDE. CALL LIGHT WITHIN REACH
--- NOTE | 2019-01-04 05:54 | NUR ---
SHIFT SUMMARY PATIENT LETHARGIC DURING REALTIME REPORTER. OBSERVED PATIENT DIAPHORETIC, CHECKED FSBS AND PATIENT ORAL TEMPERATURE BOTH WNL. PATIENT WITH LEFT HEMIPARESIS, PATIENT STATES HE IS AT BASELINE AFTER PREVIOUS STROKE. PATIENT NOTED TO HAVE INTERMITTENT RIGHT HAND TREMOR. PATIENT FOUND WITH RIGHT HAND PULLING ON CLEMONS CATHETER CAUSING SLIGHT TRAUMA TO PENIS, SMALL AMOUNT OF BLOOD FOUND ON GOWN. CLEMONS CATHETER DCd AT 0500. PATIENT Q2 TURN.
[2019-01-04 06:06] LABS: Alanine Aminotransfer (ALT/SGP 50 U/L (12-78); Albumin, Blood 3.4 g/dL (3.4-5.0); Albumin/Globulin Ratio 0.9 (0.8-1.8); Alk Phos 122 U/L (50-136); Anion Gap 8 mmol/L (6-16); Aspartate Aminotrans (AST/SGOT 54 U/L (12-37); Bilirubin, Total 0.7 mg/dL (0.1-1.0); Blood Urea Nitrogen 12 mg/dL (8-24); Bun/Creatinine Ratio 17.8 (12.0-20.0); CO2, Blood 22 mmol/L (21-32); Calcium, Blood 8.9 mg/dL (8.5-10.1); Chloride, Blood 115 mmol/L (98-108); Creatinine, Blood 0.68 mg/dL (0.60-1.20); Globulin, Blood 3.8 g/dL (2.2-4.0); Glomerular Filtration Rate >60 (60-); Glucose, Blood 99 mg/dL (70-99); Potassium, Blood 3.8 mmol/L (3.5-5.5); Sodium, Blood 145 mmol/L (136-145); Total Protein, Blood 7.2 g/dL (6.4-8.2)
--- NOTE | 2019-01-04 18:42 | NUR ---
SHIFT SUMMARY PHYSICAL THERAPY AND SPEECH THERAPY WORKED WITH PT THIS SHIFT. PT HAS HAD NO COMPLAINTS THIS SHIFT. PT HAS NO STRENGTH TO LEFT SIDE R/T OLD CVA AND POSSIBLY NEW CVA. MRI ORDERED AND BEING DONE AT THIS TIME. PT HAD BED BATH. INCONTINENT OF URINE. NO DISTRESS THIS SHIFT. WILL REPORT TO ONCOMING RN.
--- NOTE | 2019-01-04 19:55 | NUR ---
PATIENT BACK IN ROOM 351 FROM MRI. PATIENT INCONTINENT AND BRIEF CHANGED. CALL LIGHT WITHIN REACH OF RIGHT HAND. NO COMPLAINTS OR CONCERNS AT THIS TIME.
[2019-01-05 04:52] LABS: CHOL/HDL RATIO 2.3; Cholesterol 109 mg/dL (50-200); HDL Cholesterol 48 mg/dL (>39); LDL/HDL RATIO 1.1; Low Density Lipoprotein Chol 53 mg/dL (0-110); Triglycerides 38 mg/dL (30-160); Very Low Density Lipoprot Chol 7 mg/dL (6-32)
--- NOTE | 2019-01-05 06:06 | NUR ---
SHIFT SUMMARY NO ACUTE EVENTS OVERNIGHT. PATIENT TURNED Q2H. INCONTINENT OF BLADDER. PATIENT STATES HE IS CONSTIPATED. CAN NOT STATE WHEN HIS LAST BOWEL MOVEMENT WAS. PATIENT PUT ON BEDPAN X2 OVERNIGHT BUT UNABLE TO HAVE BOWEL MOVEMENT. WILL CONTINUE TO MONITOR AND REPORT TO ONCOMING NURSE.
--- NOTE | 2019-01-05 06:48 | NUR ---
WHILE CHECKING ON PATIENT I FOUND HIM TO BE CHEWING ON SOMETHING AND FOUND IT TO BE THE IV CATHETER FROM HIS LEFT HAND. IV CATHETER INTACT. SMALL AMOUNT OF BLOOD ON PATIENT GOWN. SITE CLEANED OFF
--- NOTE | 2019-01-05 10:27 | NUR ---
Echocardiogram completed.
[2019-01-05] MEDS ORDERED: MUCINEX D ER 61 EACH PO (16:27)
[2019-01-05] MEDS ORDERED: METO25 PO (16:28)
[2019-01-05] MEDS ORDERED: MIRALAX17 GM PO (16:29)
[2019-01-05] MEDS ORDERED: Nicoderm Cq1 EAC1 TOP (16:29)
--- NOTE | 2019-01-05 17:23 | NUR ---
PATIENT TO DISCHARGE HOME ON . MEDS FAXED TO [facility] PER MOTHERS REQUEST. NURSE WENT OVER DISCHARGE INSTRUCTIONS AND MEDICATIONS OVER THE PHONE WITH HIS MOTHER SHE IS PCG OF PATIENT. IV REMOVED, NO SS OF INFECTION NOTED. PATIENT WAS CHANGED AND DRESSED AND ASSISTED BY STAFF INTO TRANSPORT . TAKEN HOME BY HUYEN MONTESINOS.
== END 2019-01-05 17:19 | disposition home or self-care (01) | DRG 65 ==
LOC: ER 12:24 → MEDS 12:25 → ER 16:38 → MEDS 16:44
PROVIDERS: Emergency Medicine; ADMIT Internal Medicine
DX: I63.511 Cerebral infarction due to unspecified occlusion or stenosis of right middle cerebral artery (principal); I69.354 Hemiplegia and hemiparesis following cerebral infarction affecting left non-dominant side; R74.0 Nonspecific elevation of levels of transaminase and lactic acid dehydrogenase [LDH]; R91.1 Solitary pulmonary nodule; I25.10 Atherosclerotic heart disease of native coronary artery without angina pectoris; N40.0 Benign prostatic hyperplasia without lower urinary tract symptoms; K21.9 Gastro-esophageal reflux disease without esophagitis; E78.5 Hyperlipidemia, unspecified; F17.210 Nicotine dependence, cigarettes, uncomplicated; T46.6X5A Adverse effect of antihyperlipidemic and antiarteriosclerotic drugs, initial encounter; F15.11 Other stimulant abuse, in remission; J44.9 Chronic obstructive pulmonary disease, unspecified; Z79.899 Other long term (current) drug therapy; Z79.82 Long term (current) use of aspirin; Z95.5 Presence of coronary angioplasty implant and graft; Z79.01 Long term (current) use of anticoagulants
CPT/HCPCS: 36415; 51702; 70450; 70551; 71046; 71250; 80053; 80061; 81001; 82947; 83036; 83605; 84145; 85025; 85610; 85730; 87040; 87086; 92526; 92610; 93005; 93010; 93308; 93321; 93880; 94640; 94760; 96365-59; 96367-59; 97162; 97166; 97530; 99285-25; A9270; G0480; J0456; J0696; J7030; J7050

== ENCOUNTER → 2019-08-02 | Outpatient (CLI) | payer OTHER ==
[~2019-08-02] MED LIST changes: +METO25 PO; +MIRALAX17 GM PO; +MUCINEX D ER 61 EACH PO; +Nicoderm Cq1 EAC1 TOP; +OMEPRAZOLE20 MG PO; +XARELTO20 MG PO
== END | disposition home or self-care (01) ==
LOC: LAB SHORT 14:32 → LAB 14:32
DX: L98.499 Non-pressure chronic ulcer of skin of other sites with unspecified severity (principal)
CPT/HCPCS: 87070; 87077; 87147; 87186; 87205

== ENCOUNTER 2019-09-03 00:15 | Day surgery (SDC) | payer OTHER | END 2019-09-03 22:40 | disposition home or self-care (01) | LOC: WOUND 00:15 | DX: L89.619 Pressure ulcer of right heel, unspecified stage (principal); I48.91 Unspecified atrial fibrillation; E78.5 Hyperlipidemia, unspecified; I25.2 Old myocardial infarction; I69.954 Hemiplegia and hemiparesis following unspecified cerebrovascular disease affecting left non-dominant side; I25.10 Atherosclerotic heart disease of native coronary artery without angina pectoris; J44.9 Chronic obstructive pulmonary disease, unspecified; Z95.5 Presence of coronary angioplasty implant and graft; Z79.82 Long term (current) use of aspirin; Z79.01 Long term (current) use of anticoagulants; Z79.899 Other long term (current) drug therapy | CPT/HCPCS: G0463 ==

== ENCOUNTER 2019-09-20 17:50 | Emergency (ER) | payer OTHER ==
[2019-09-20] MEDS ORDERED: TRIPLE PASTE TOP (19:13)
[2019-09-20] MEDS ORDERED: Baclofen10 MG PO (19:14)
== END 2019-09-20 19:38 | disposition home or self-care (01) ==
DX: L89.621 Pressure ulcer of left heel, stage 1 (principal); L89.611 Pressure ulcer of right heel, stage 1; L89.211 Pressure ulcer of right hip, stage 1; M62.49 Contracture of muscle, multiple sites; I25.10 Atherosclerotic heart disease of native coronary artery without angina pectoris; N40.0 Benign prostatic hyperplasia without lower urinary tract symptoms; E78.5 Hyperlipidemia, unspecified; K21.9 Gastro-esophageal reflux disease without esophagitis; I10 Essential (primary) hypertension; J44.9 Chronic obstructive pulmonary disease, unspecified; F17.210 Nicotine dependence, cigarettes, uncomplicated; Z86.73 Personal history of transient ischemic attack (TIA), and cerebral infarction without residual deficits; Z79.899 Other long term (current) drug therapy; Z79.82 Long term (current) use of aspirin